=== PATIENT | female | born 1995 | race Two or more races ===

== ENCOUNTER 2018-04-25 00:12 | Inpatient (IN) | payer MEDICAID ==
[~2018-04-25] VITALS: Ht 160 cm; Wt 79.8 kg
--- NOTE | ~2018-04-25 | OP ---
PATIENT NAME: DOM RODRIGUEZ MEDICAL RECORD: [id number] :89 LOCATION:[id number] ADMISSION DATE:04/25/18 SURGEON: JAVIER VERA MD DATE OF OPERATION: 04/25/2018 PREDELIVERY DIAGNOSIS: Spontaneous labor at 39 weeks' gestation. POSTDELIVERY DIAGNOSES: 1. Nonreassuring tracing. 2. Double nuchal cord. 3. Mother delivered at term. PROCEDURE: Vacuum-assisted vaginal delivery. ATTENDING: Javier Vera MD ANESTHETIC: Continuous lumbar epidural. FINDINGS: Viable male infant in OA presentation, Apgars are 7 and 8. Double nuchal cord reduced on perineum. Weight 7 pounds 13 ounces. A second-degree laceration of the vaginal floor with first-degree lacerations of vaginal side loredo. Repairs were affected with 3-0 chromic and 3-0 Vicryl. I noted increased swelling in the perineum. Placenta spontaneous and intact. Uterine atony postdelivery of placenta controlled with 200 mcg of misoprostol p.o. and Methergine 0.2 mg IM. ESTIMATED BLOOD LOSS: 450 cc. DISPOSITION: Mother recovered in the room. Infant to nursery for transition. TRANSINT:[id number] Voice Confirmation ID: [id number] DOCUMENT ID: [id number] JAVIER VERA MD at 1243 CC: [id number] DICTATION DATE: 04/25/18 1140 OUTER DIAMETER GRINDER: 04/25/18 1159 DIS IN 04/26/18 [id number] [place] [address]
--- NOTE | ~2018-04-25 | DS ---
PATIENT:DOM RODRIGUEZ :89 MEDICAL RECORD: [id number] DISCHARGE SUMMARY ADMISSION DATE: 04/25/18 DISCHARGE DATE: 04/26/18 DATE OF ADMISSION: 04/25/2018. DATE OF DISCHARGE: 04/26/2018. ADMISSION DIAGNOSES: Spontaneous rupture of membrane and active labor. DISCHARGE DIAGNOSIS: Mother delivered at term. PROCEDURE PERFORMED: Vacuum-assisted vaginal delivery. ATTENDING: Javier Cameron MD HISTORY OF PRESENT ILLNESS: See the H&P in the chart. SUMMARY OF HOSPITALIZATION: The patient was admitted to the hospital and underwent labor and delivered with vacuum assist. The patient had increased vulvar edema and Montesinos catheter was started a day of delivery. On hospital day #1, the patient's Montesinos catheter was removed. Void is pending, but the patient will be discharged after void. If any issues with voiding, the patient will be given the option of staying overnight versus being discharged with an indwelling catheter for a few days. The patient's trauma to her perineum has been successfully treated with analgesics in the hospital. The patient will receive a prescription of 5 mg Percocet, dispensing 10 with sitting of one every 4-6 hours as needed for moderate to severe pain. The patient also has received ibuprofen. Sitz baths t.i.d. and instructions have been given. Standard precautions have also been reviewed. The patient will follow up in the clinic. TRANSINT:[id number] Voice Confirmation ID: [id number] DOCUMENT ID: [id number] JAVIER CAMERON MD at 1243 CC: [id number] DICTATION DATE: 04/26/18 1603 KETTLE GIRL: 04/27/18 0111 DIS IN 04/26/18 [facility] [address] [place] [address]
[2018-04-25 00:41] LABS: HEMATOCRIT 33.4 % (36.0-48.0); HEMOGLOBIN 11.2 g/dL (12-16); MCH 28.1 pg (26.0-34.0); MCHC 33.5 g/dL (31.0-37.0); MCV 83.9 fL (80.0-100.0); MEAN PLATELET VOLUME 10.3 fL (7.4-10.4); RBC 3.98 10x6/uL (4.00-5.40); RDW 15.5 % (11.5-14.5)
[2018-04-25] MEDS ORDERED: PRENATAL GUMMIES (00:50)
[2018-04-25 01:24] VITALS: BP 144/87; BMI 31.2
[2018-04-25 19:05] VITALS: BP 122/76
[2018-04-25 21:07] LABS: BASOPHILS 0.1 % (0-2); EOSINOPHILS 0 % (0-7); IMMATURE GRANULOCYTES 0.3 % (0-5); LYMPHOCYTES 13.6 % (15-50); MCH 28.1 pg (26.0-34.0); MCHC 33.2 g/dL (31.0-37.0); MCV 84.6 fL (80.0-100.0); MEAN PLATELET VOLUME 9.9 fL (7.4-10.4); RDW 16.3 % (11.5-14.5)
[2018-04-25 21:08] LABS: RBC 2.67 10x6/uL (4.00-5.40); WBC 17.1 10x3/uL (4.8-10.8)
[2018-04-25 21:09] LABS: HEMATOCRIT 22.6 % (36.0-48.0); HEMOGLOBIN 7.5 g/dL (12-16); PLATELET COUNT 142 10x3/uL (130-400)
[2018-04-25 23:39] VITALS: BP 118/68
[2018-04-26 08:15] VITALS: BP 108/55
[2018-04-26 11:08] VITALS: Ht 160 cm; Wt 79.8 kg
[2018-04-26] MEDS ORDERED: HYDROCODON-ACE1 EAC7 PO (19:22)
[2018-04-26] MEDS ORDERED: IBUPROFEN800 MG PO (19:22)
[2018-04-27 07:26] LABS: RAPID PLASMA REAGIN Non Reactive (Non Reactive)
== END 2018-04-26 20:00 | disposition home or self-care (01) | DRG 807 ==
LOC: D.LD 00:12
PROVIDERS: Obstetrics & Gynecology
PROC: 10D07Z6 Extraction of Products of Conception, Vacuum, Via Natural or Artificial Opening (ICD-10-PCS; principal; 2018-04-25)
PROC: 0KQM0ZZ Repair Perineum Muscle, Open Approach (ICD-10-PCS; 2018-04-25)
DX: O70.1 Second degree perineal laceration during delivery (principal); Z37.0 Single live birth; O69.81X0 Labor and delivery complicated by cord around neck, without compression, not applicable or unspecified; Z3A.39 39 weeks gestation of pregnancy